=== PATIENT | male | born 1935 | race Caucasian/White ===

== ENCOUNTER 2017-02-24 10:24 | Emergency (ER) | payer MEDICARE, BC ==
[~2017-02-24] VITALS: Ht 180.3 cm; Wt 102.0 kg
[~2017-02-24 10:24] MED LIST: ATENOLOL25 MG PO; ECOTRIN325 MG PO; ISOSORB MONO30 MG PO; LISINOPRIL10 MG PO; SIMVASTATIN40 MG PO; ZITHROMAX250 MG PO
[2017-02-24 11:37] LABS: HEMATOCRIT 44.3 % (39.0-50.0); HEMOGLOBIN 14.8 g/dl (14.0-18.0); IMMATURE GRANULOCYTES 0.3 % (0.0-1.0); MEAN CELL VOLUME 95.3 fL CALC (80.0-100.0); MEAN CORPUSCULAR HGB 31.8 pG CALC (26.0-32.0); MEAN CORPUSCULAR HGB CONC 33.4 g/L CALC (32.0-36.0); NEUT# 6.1 thou/uL (1.82-7.42); RED BLOOD COUNT 4.65 mill/uL (4.70-6.10)
[2017-02-24 11:50] LABS: ALBUMIN 4.1 g/dL (3.2-5.0); ALKALINE PHOSPHATASE 38 u/l (38-126); ANION GAP 16 (6-22 (CALC)); BUN 16 mg/dL (8-23); BUN/CREATININE RATIO 20 (12-20 (CALC)); CALCIUM 9.2 mg/dL (8.4-10.2); CARBON DIOXIDE 25 mmol/l (22-30); CHLORIDE 106 mmol/l (95-108); CREATININE 0.8 mg/dL (0.7-1.3); GFR > 60 ML/MIN (>=60 (CALC)); GFR FOR AFR.AMER. > 60 ML/MIN (>=60 (CALC)); GLUCOSE 114 mg/dL (82-115); POTASSIUM 4.8 mmol/l (3.5-5.1); SGOT/AST 28 u/l (19-48); SGPT/ALT 28 u/l (11-66); SODIUM 142 mmol/l (137-146); TOTAL PROTEIN 6.8 g/dL (6.3-8.2)
[2017-02-24] MEDS ORDERED: ELIQUIS5 MG PO (11:59)
[2017-02-24 12:54] LABS: URINE BILIRUBIN - DIPSTICK NEGATIVE (NEGATIVE); URINE BLOOD DIPSTICK NEGATIVE (NEGATIVE); URINE COLOR YELLOW; URINE GLUCOSE - DIPSTICK NEGATIVE (NEGATIVE); URINE KETONE TRACE mg/dL (NEGATIVE); URINE LEUK ESTERASE NEGATIVE (NEGATIVE); URINE NITRITE - DIPSTICK NEGATIVE (Negative); URINE PH 6.5 (4.5-8.0); URINE PROTEIN - DIPSTICK TRACE mg/dL (NEG-TRACE); URINE SPECIFIC GRAVITY 1.015; URINE UROBILINOGEN - DIPSTICK 0.2 E.U./dL (0.2)
[2017-02-24 12:56] LABS: URINE CLARITY CLEAR
[2017-02-24] MEDS ORDERED: ULTRAM50 M1 PO (13:06)
[2017-02-24] MEDS ORDERED: MEDDOSEPAK PO (13:06)
[2017-02-24 13:30] VITALS: BP 148/89
== END 2017-02-24 13:30 | disposition home or self-care (01) ==
LOC: ED 10:24
PROVIDERS: Emergency Medicine
DX: K59.00 Constipation, unspecified (principal); G89.29 Other chronic pain; M54.5 Low back pain; I10 Essential (primary) hypertension; I25.10 Atherosclerotic heart disease of native coronary artery without angina pectoris; E78.5 Hyperlipidemia, unspecified; Z95.5 Presence of coronary angioplasty implant and graft; I49.9 Cardiac arrhythmia, unspecified; Z79.01 Long term (current) use of anticoagulants